=== PATIENT | male | born 1970 | race Caucasian/White ===

== ENCOUNTER 2018-01-18 08:03 | Day surgery (SDC) | payer OTHER ==
[2016-04-21 10:12] VITALS: BP 113/76
--- NOTE | 2018-01-19 15:25 | GI Report ---
REFERRING PHYSICIAN: Dr. La Nena Maharaj [employer]ATION HELPER: Chris Torre MD PROCEDURE MEDICATION: Propofol as per anesthesia. INDICATIONS: Patient is a 47-year-old man. He had colon cancer with a right hemicolectomy at age 31. Family history is positive for colon cancer at a early age and uterine cancer, which would suggest Alfred Syndrome. He has also had polyps and dysplasia. He is a high risk screening. He denies any interval change in bowel habits since last colonoscopy. He does try to eat more fruits and vegetables in his diet. He is on ibuprofen. He does take an aspirin daily. Again, the patient's father has had colon cancer. His sister has had colon cancer. PROCEDURE PERFORMED: Colonoscopy. PROCEDURE: An Olympus video colonoscope was advanced to the rectum and advanced to the anastomosis of transverse colon and small bowel, which is near the hepatic flexure. We advanced 10 cm in the terminal ileum with no obvious abnormalities there. On slow withdrawal, the transverse colon had no obvious intraluminal lesions noted. In the descending colon and sigmoid, we went back and forth several times and no obvious intraluminal lesions were noted. Retroflexion of the rectum was normal. Patient tolerated the procedure well. FINDINGS: Normal mucosa to the anastomosis of transverse colon and small bowel. Going back and forth several times, no obvious intraluminal lesions noted, including no obvious serrated adenomas. RECOMMENDATIONS: 1. Again, continue high-fiber diet. 2. Continue taking baby aspirin daily. 3. Again, he is such a high risk, consider re-looking at his colon within 3 years. cc: Dr. La Nena VICK
== END 2018-01-18 08:04 ==
LOC: OPSURG 08:03
PROVIDERS: ATTEND Internal Medicine Gastroenterology
DX: Z12.11 Encounter for screening for malignant neoplasm of colon (principal); Z85.038 Personal history of other malignant neoplasm of large intestine; Z90.49 Acquired absence of other specified parts of digestive tract; Z80.0 Family history of malignant neoplasm of digestive organs; Z80.8 Family history of malignant neoplasm of other organs or systems
CPT/HCPCS: J2704; J7120; 45378; S1016